=== PATIENT | male | born 2000 | race African-American/Black ===

== ENCOUNTER 2021-10-01 00:45 | Emergency (ER) | payer SELFPAY | END 2021-10-01 01:36 | disposition home or self-care (01) | LOC: ERS 00:45 | DX: R11.2 Nausea with vomiting, unspecified (principal) | CPT/HCPCS: 99283 ==

== ENCOUNTER 2021-10-21 21:19 | Emergency (ER) | payer SELFPAY | END 2021-10-21 22:14 | disposition home or self-care (01) | LOC: ERS 21:19 | DX: R11.10 Vomiting, unspecified (principal) | CPT/HCPCS: 99283 ==

== ENCOUNTER 2021-11-11 08:07 | Emergency (ER) | payer SELFPAY ==
[2021-11-11] MEDS ORDERED: Ibuprofen 200 MG TAB ONE (09:19)
== END 2021-11-11 09:26 | disposition home or self-care (01) ==
LOC: ERS 08:07
DX: S66.911A Strain of unspecified muscle, fascia and tendon at wrist and hand level, right hand, initial encounter (principal); X50.3XXA Overexertion from repetitive movements, initial encounter

== ENCOUNTER 2021-11-25 20:28 | Emergency (ER) | payer SELFPAY | END 2021-11-25 22:07 | disposition home or self-care (01) | LOC: ERS 20:28 | DX: R11.10 Vomiting, unspecified (principal) | CPT/HCPCS: 99283 ==

== ENCOUNTER 2021-12-04 18:22 | Emergency (ER) | payer SELFPAY | END 2021-12-04 21:55 | disposition home or self-care (01) | LOC: ERS 18:22 | DX: S63.501A Unspecified sprain of right wrist, initial encounter (principal); X50.9XXA Other and unspecified overexertion or strenuous movements or postures, initial encounter ==

== ENCOUNTER 2021-12-29 20:08 | Emergency (ER) | payer SELFPAY ==
[2021-12-29] MEDS ORDERED: Metoclopramide HCl 10 MG/2 ML VIAL ONE (21:26)
[2021-12-29] MEDS ORDERED: diphenhydrAMINE 50 MG/ML VIAL ONE (21:26)
[2021-12-29] MEDS ORDERED: Ondansetron PF 4 MG/2 ML Vial ONE (21:26)
[2021-12-29] MEDS ORDERED: Ketorolac Tromethamine 30 MG/ML VIAL ONE (21:26)
== END 2021-12-29 20:50 | disposition home or self-care (01) ==
LOC: ERS 20:08
DX: R11.10 Vomiting, unspecified (principal)
CPT/HCPCS: 99281; J1200; J1885; J2405; J2765

== ENCOUNTER 2021-12-31 21:28 | Emergency (ER) | payer SELFPAY | END 2021-12-31 22:06 | disposition home or self-care (01) | LOC: ERS 21:28 | DX: S90.414A Abrasion, right lesser toe(s), initial encounter (principal); W20.8XXA Other cause of strike by thrown, projected or falling object, initial encounter | CPT/HCPCS: 99283 ==

== ENCOUNTER 2022-05-15 02:32 | Emergency (ER) | payer SELFPAY | END 2022-05-15 03:43 | disposition home or self-care (01) | LOC: ERS 02:32 | DX: M65.4 Radial styloid tenosynovitis [de Quervain] (principal) | CPT/HCPCS: 99282 ==

== ENCOUNTER 2022-08-20 17:25 | Emergency (ER) | payer SELFPAY | END 2022-08-20 19:57 | disposition home or self-care (01) | LOC: ERS 17:25 | DX: M79.641 Pain in right hand (principal) ==

== ENCOUNTER 2023-08-06 19:20 | Emergency (ER) | payer SELFPAY | END 2023-08-06 20:53 | disposition home or self-care (01) | LOC: ERS 19:20 | DX: S63.501A Unspecified sprain of right wrist, initial encounter (principal); W22.8XXA Striking against or struck by other objects, initial encounter ==